=== PATIENT | male | born 1995 | race Hispanic/Latino ===

== ENCOUNTER 2017-10-20 04:42 | Emergency (ER) | payer MEDICAID, OTHER, SELFPAY ==
[2017-10-20 05:16] LABS: BASOPHILS % (AUTO) 0.2 % (0.0-5.0); EOSINOPHILS % (AUTO) 0.7 % (0.0-8.0); HEMATOCRIT 38.5 % (42-54); LYMPHOCYTES % (AUTO) 28.9 % (21.0-51.0); MEAN CORPUSCULAR HEMOGLOBIN 28.3 pg (27.0-33.0); MEAN CORPUSCULAR HGB CONC 34.2 g/dL (32.0-36.0); MEAN CORPUSCULAR VOLUME 82.7 fL (80-100); MONOCYTES % (AUTO) 11.2 % (3.0-13.0); PLATELET COUNT (AUTO) 309 K/uL (130-400); RED BLOOD CELL COUNT(AUTO) 4.66 MIL/uL (4.50-6.20); RED CELL DISTRIBUTION WIDTH 12.4 % (11.0-15.5); WHITE BLOOD COUNT (AUTO) 6.1 K/uL (4.8-10.8)
[2017-10-20 05:25] LABS: CREATININE 0.9 mg/dL (0.5-1.5); POTASSIUM 3.5 mmol/L (3.5-5.1)
[2017-10-20] MEDS ORDERED: SODIUM CHLORIDE 0.9% 1000ML 1,000 ML IV ONE (06:00)
[2017-10-20] MEDS ORDERED: LORAZEPAM 2 MG/ML 1 ML VIAL ONE (06:50)
== END 2017-10-20 07:24 | disposition home or self-care (01) ==
LOC: EDH 04:42
DX: F41.1 Generalized anxiety disorder (principal); E86.9 Volume depletion, unspecified; J45.909 Unspecified asthma, uncomplicated; F90.9 Attention-deficit hyperactivity disorder, unspecified type; Z88.2 Allergy status to sulfonamides; Z87.891 Personal history of nicotine dependence
CPT/HCPCS: 36415; 71010; 80048; 85025; 87804 ×2; 93005; 96361; 96374; 99285; J2060; J7030

== ENCOUNTER 2022-07-19 04:20 | Emergency (ER) | payer MEDICAID ==
[~2022-07-19] VITALS: Ht 167.6 cm; Wt 75.3 kg
[2022-07-19 04:28] VITALS: BP 124/88
== END 2022-07-19 05:02 | disposition home or self-care (01) ==
LOC: EDH 04:20
DX: U07.1 COVID-19 (principal); J45.909 Unspecified asthma, uncomplicated
CPT/HCPCS: 99281

== ENCOUNTER 2023-12-13 18:54 | Emergency (ER) | payer MEDICAID ==
[~2023-12-13] VITALS: Ht 167.6 cm; Wt 77.6 kg
[2023-12-13 19:29] LABS: ADD UA MICROSCOPIC YES; APPEARANCE,URINE CLEAR (CLEAR); BILIRUBIN,URINE NEGATIVE (NEGATIVE); COLOR,URINE YELLOW (YELLOW); GLUCOSE, URINE (UA) NEGATIVE (NEGATIVE); KETONES,URINE NEGATIVE (NEGATIVE); LEUKOCYTE ESTERASE ,URINE NEGATIVE Leu/uL (NEGATIVE); NITRATE,URINE NEGATIVE (NEGATIVE); OCCULT BLOOD,URINE NEGATIVE (NEGATIVE); PH,URINE 5.5 (5.0-8.0); PROTEIN,URINE 100 mg/dL (NEGATIVE); UROBILINOGEN,URINE 0.2 mg/dL (0.2-1.0)
[2023-12-13 19:32] LABS: BACTERIA,URINE RARE /HPF (None Seen); MUCUS,URINE MOD LPF (None Seen)
[2023-12-13 20:16] LABS: BASOPHILS # (AUTO) 0.02 K/uL (0.00-0.20); BASOPHILS % (AUTO) 0.2 % (0.0-5.0); EOSINOPHILS # (AUTO) 0.08 K/uL (0.00-0.70); EOSINOPHILS % (AUTO) 0.8 % (0.0-8.0); HEMATOCRIT 41.7 % (42-54); IMMATURE GRANULOCYTE ABSOLUTE 0.02 K/uL (0-1); LYMPHOCYTES # (AUTO) 0.5 K/uL (1.0-4.8); MEAN CORPUSCULAR HEMOGLOBIN 27.8 pg (27.0-33.0); MEAN CORPUSCULAR HGB CONC 34.3 g/dL (32.0-36.0); MEAN CORPUSCULAR VOLUME 81.1 fL (79-99); MONOCYTES # (AUTO) 0.5 K/uL (0.1-1.0); MONOCYTES % (AUTO) 4.2 % (3.0-13.0); NEUTROPHILS # (AUTO) 9.5 K/uL (1.8-7.7); NEUTROPHILS % (AUTO) 89.6 % (40.0-77.0); PLATELET COUNT (AUTO) 223 K/uL (130-400); RED BLOOD CELL COUNT(AUTO) 5.14 MIL/uL (4.50-6.20); RED CELL DISTRIBUTION WIDTH 12.5 % (11.0-15.5); WHITE BLOOD COUNT (AUTO) 10.6 K/uL (4.8-10.8)
[2023-12-13 20:24] LABS: CREATININE 1.1 mg/dL (0.5-1.5); POTASSIUM 3.8 mmol/L (3.5-5.1)
[2023-12-13 20:29] LABS: ALBUMIN 4.5 g/dL (3.5-5.0); BILIRUBIN,TOTAL 0.9 mg/dL (0.2-1.0); TOTAL PROTEIN, SERUM 8.5 g/dL (6.0-8.3)
[2023-12-13] MEDS: ONDANSETRON 4MG INJ IVP ONE (20:30)
[2023-12-13] MEDS: 0.9%NACL 1000ML 1,000 ML IV ONE (20:30)
[2023-12-13] MEDS: FAMOTIDINE 20MG VIAL IV ONE (20:30)
[2023-12-13 21:02] LABS: RAPID GROUP A STREP negative (NEGATIVE)
[2023-12-13 21:04] LABS: SARS-CoV-2, RNA, NAAT NEGATIVE SARS CoV-2 (NEGATIVE)
[2023-12-13 21:12] LABS: INFLUENZA TYPE A Negative For Type A (NEGATIVE); INFLUENZA TYPE B Negative For Type B (NEGATIVE)
[2023-12-13] MEDS ORDERED: ONDA4TAB10 PO (21:50)
[2023-12-13] MEDS ORDERED: FAMO-136 PO (21:50)
[2023-12-13 22:01] VITALS: BP 132/67; PULSE 98; RESP 19; O2SAT 100
== END 2023-12-13 22:02 | disposition home or self-care (01) ==
LOC: EDH 18:54
DX: K52.9 Noninfective gastroenteritis and colitis, unspecified (principal); R74.8 Abnormal levels of other serum enzymes; F41.9 Anxiety disorder, unspecified; F32.A Depression, unspecified; Z20.822 Contact with and (suspected) exposure to COVID-19; Z98.890 Other specified postprocedural states
CPT/HCPCS: 99285; 74176; 96374; 87635; 96375; 80053; 83690; 85025; 87880; 87804 ×2; 81001; 36415; J7030; J2405; S0028; J3490

== ENCOUNTER 2024-12-24 01:14 | Emergency (ER) | payer MEDICAID ==
[~2024-12-24] VITALS: Ht 167.6 cm; Wt 84.8 kg
[~2024-12-24 01:14] MED LIST: FAMO-136 PO; ONDA-243 PO
[2024-12-24 02:36] LABS: BASOPHILS # (AUTO) 0.03 K/uL (0.00-0.20); BASOPHILS % (AUTO) 0.4 % (0.0-5.0); EOSINOPHILS # (AUTO) 0.21 K/uL (0.00-0.70); EOSINOPHILS % (AUTO) 2.9 % (0.0-8.0); IMMATURE GRANULOCYTE ABSOLUTE 0.02 K/uL (0-1); LYMPHOCYTES # (AUTO) 1.8 K/uL (1.0-4.8); LYMPHOCYTES % (AUTO) 24.7 % (21.0-51.0); MEAN CORPUSCULAR HEMOGLOBIN 27.5 pg (27.0-33.0); MEAN CORPUSCULAR HGB CONC 33.5 g/dL (32.0-36.0); MONOCYTES # (AUTO) 0.7 K/uL (0.1-1.0); MONOCYTES % (AUTO) 9.6 % (3.0-13.0); NEUTROPHILS # (AUTO) 4.5 K/uL (1.8-7.7); NEUTROPHILS % (AUTO) 62.1 % (40.0-77.0); PLATELET COUNT (AUTO) 250 K/uL (130-400); RED BLOOD CELL COUNT(AUTO) 4.88 MIL/uL (4.50-6.20); RED CELL DISTRIBUTION WIDTH 13.1 % (11.0-15.5); WHITE BLOOD COUNT (AUTO) 7.2 K/uL (4.8-10.8)
[2024-12-24 02:46] LABS: CREATININE 0.9 mg/dL (0.5-1.3)
[2024-12-24 03:03] LABS: ALBUMIN 4.3 g/dL (3.5-5.0); BILIRUBIN,DIRECT 0.1 mg/dL (0.0-0.3); BILIRUBIN,TOTAL 0.3 mg/dL (0.2-1.0)
--- NOTE | 2024-12-24 04:27 | ERN ---
General Chief Complaint: Abdominal Pain Stated Complaint: DIFFUSE ABD PAIN-RESOLVED Time Seen by MD: 02:27 Source: patient History of Present Illness Initial Comments Patient is a 29-year-old male with anxiety disorder and social isolation who has a history of metabolic liver disease with hepatomegaly. He was being followed by a GI doctor. He comes in today with complaints of fullness in his central stomach and a mild achy pain that radiate bilaterally to his back. He has concerns that it may be due to an exacerbation of his liver condition. Timing/Duration: 1 week, constant Associated Symptoms: denies symptoms, chest pain, cough Allergies: Coded Allergies: No Known Allergies (Unverified Allergy, Unknown, 07/19/22) Home Meds Active Scripts Ondansetron (Ondansetron Odt) 4 Mg Tab.rapdis, 4 MG PO BID PRN for nausea, #6 TAB Prov:AUDRA COLON [facility] 12/13/23 Famotidine (Pepcid) 20 Mg Tablet, 20 MG PO BID, #20 TAB Prov:AUDRA COLON [facility] 12/13/23 Past Medical History Past Medical History: Anxiety, Asthma, Depression, Other Medical History Other: HX ACID REFLUX; HX OF SEASONAL ALLERGIES Past Surgical History: None Family History Family History: Negative Social History Social History: Negative, Lives with family, Other Gastrointestinal/Abdominal: (+) abdominal pain Nurses Notes Reviewed: Yes Physical Exam General Appearance: (+) mild distress Orientation: (+) alert, (+) oriented x 3 Head/Face Trauma: No Eye: bilateral eye normal inspection, bilateral eye PERRL, bilateral eye EOMI Ear, Nose, Throat: (+) hearing grossly normal, (+) normal ENT inspection, (+) moist mucous membraine Neck: (+) normal inspection, (+) supple, (+) full range of motion, (+) no JVD Respiratory: (+) chest non-tender, (+) lungs clear, (+) well ventilated Heart: (+) regular Vascular: (+) no edema, (+) no JVD Gastrointestinal: (+) soft, (+) non-tender, (+) bowel sound present Extremities: (+) normal range of motion, (+) non-tender, (+) normal inspection Neurologic/Psychiatric: (+) normal speech, (+) no motor defecits, (+) no se nsory deficits Reflexes: Normal Skin: (+) normal color, (+) warm/dry Results Laboratory and Microbiology Lab and Micro Result Laboratory Tests Test 12/24/24 02:25 White Blood Count 7.2 K/uL (4.8-10.8) Red Blood Count 4.88 MIL/uL (4.50-6.20) Hemoglobin 13.4 g/dL (14.0-18.0) L Hematocrit 40.0 % (42-54) L Mean Corpuscular Volume 82.0 fL (79-99) Mean Corpuscular Hemoglobin 27.5 pg (27.0-33.0) Mean Corpuscular Hemoglobin Concent 33.5 g/dL (32.0-36.0) Red Cell Distribution Width 13.1 % (11.0-15.5) Platelet Count 250 K/uL (130-400) Mean Platelet Volume 8.9 fL (7.5-10.5) Immature Granulocyte % (Auto) 0.3 % (0-1) Neutrophils (%) (Auto) 62.1 % (40.0-77.0) Lymphocytes (%) (Auto) 24.7 % (21.0-51.0) Monocytes (%) (Auto) 9.6 % (3.0-13.0) Eosinophils (%) (Auto) 2.9 % (0.0-8.0) Basophils (%) (Auto) 0.4 % (0.0-5.0) Neutrophils # (Auto) 4.5 K/uL (1.8-7.7) Lymphocytes # (Auto) 1.8 K/uL (1.0-4.8) Monocytes # (Auto) 0.7 K/uL (0.1-1.0) Eosinophils # (Auto) 0.21 K/uL (0.00-0.70) Basophils # (Auto) 0.03 K/uL (0.00-0.20) Absolute Immature Granulocyte (auto 0.02 K/uL (0-1) Nucleated Red Blood Cells 0.0 % (0.0-0.19) Sodium Level 139 mmol/L (136-145) Potassium Level 4.0 mmol/L (3.5-5.1) Chloride Level 102 mmol/L (101-111) Carbon Dioxide Level 29 mmol/L (21-32) Blood Urea Nitrogen 9 mg/dL (7-18) Creatinine 0.9 mg/dL (0.5-1.3) Glomerular Filtration Rate Calc 120 mL/min (>90) Random Glucose 146 mg/dL (70-105) H Total Calcium 9.0 mg/dL (8.5-10.1) Total Bilirubin 0.3 mg/dL (0.2-1.0) Direct Bilirubin 0.1 mg/dL (0.0-0.3) Aspartate Amino Transf (AST/SGOT) 146 U/L (10-37) H Alanine Aminotransferase (ALT/SGPT) 279 U/L (12-78) H Alkaline Phosphatase 73 U/L (50-136) Total Protein 8.0 g/dL (6.0-8.3) Albumin 4.3 g/dL (3.5-5.0) Lipase 63 U/L (16-77) MDM The etiology of the patient's abdominal pain could be due to hepatomegaly it could be due to constipation or musculoskeletal pain. My suspicion is that the pain is not from hepatomegaly and liver capsule stress as the patient points to his mid abdomen and lower. I will start a workup with a CMP and a KUB. In addition a CBC was ordered . The KUB showed hepatomegaly and also a moderate stool burden throughout his entire large colon. His chemistry panel showed continued liver inflammation. His CBC showed no evidence of infection. I discussed this with the patient and recommended MiraLax. I also strongly recommended that the patient go back to his GI doctor and try some of the newer GI medications to help with his metabolic liver disease. ED Course Orders Procedure Category Date Status Time Cbc With Differential LAB 12/24/24 Complete 02:04 Basic Metabolic Panel LAB 12/24/24 Complete 02:04 Abd 1vw RAD 12/24/24 Taken 02:43 Hepatic Function Panel LAB 12/24/24 Complete 02:25 Lipase LAB 12/24/24 Complete 03:21 Vital Signs Date Time Temp Pulse Resp B/P (MAP) Pulse Ox O2 Delivery O2 Flow Rate FiO2 12/24/24 01:19 98.2 74 15 139/83 100 Room Air 0 12/24/24 01:15 98.2 74 15 139/83 100 Room Air* 0 21 Problem List Problem Lists: (1) Abdominal pain (2) Elevated liver enzymes DX & DISP Disposition: Discharge Departure Impression: Primary Impression: Abdominal pain Condition: Stable Referrals: SELF,REFERRAL (PCP) RONALD BARTH MD Dec 24, 2024 04:27
[2024-12-24 04:32] VITALS: BP 134/79; PULSE 72; RESP 17; TEMP 98.5; O2SAT 100
--- NOTE | 2024-12-24 08:11 | HMCIMG ---
ABDOMEN SINGLE VIEW INDICATION: Pain COMPARISON: None FINDINGS: Supine view only No abnormal bowel dilation noted. Moderate stool burden. No abnormal calcifications identified. No gross free air detected. IMPRESSION: Moderate constipation without evidence for bowel obstruction.
== END 2024-12-24 04:33 | disposition home or self-care (01) ==
LOC: EDH 01:14
DX: R10.84 Generalized abdominal pain (principal); F41.9 Anxiety disorder, unspecified; J45.909 Unspecified asthma, uncomplicated; K21.9 Gastro-esophageal reflux disease without esophagitis
CPT/HCPCS: 36415; 74018; 80048; 80076; 83690; 85025; 99284